=== PATIENT | male | born 1990 | race Caucasian/White ===

== ENCOUNTER 2016-11-28 19:54 | Emergency (ER) | payer SELFPAY ==
[2016-11-28 19:57] VITALS: BP 150/96; PULSE 92; RESP 14; TEMP 97.5; O2SAT 97
== END 2016-11-28 20:29 | disposition left against medical advice (07) ==
LOC: NED 19:54
DX: R68.89 Other general symptoms and signs (principal)
CPT/HCPCS: 99281